=== PATIENT | male | born 1965 | race Caucasian/White ===

== ENCOUNTER 2023-04-06 10:07 | Day surgery (SDC) | payer MEDICARE ==
[2023-03-31 13:03] VITALS: BMI 30.5
[~2023-04-06 10:07] MED LIST: DEXAMETHASONE SOD PHOSPHATE 4 MG/ML 1 ML VIAL IV ONE; FAMOTIDINE 20 MG/2 ML VIAL IV PRN; HYDROmorphone 0.5 MG/0.5 ML SYRINGE IVP PRN; LACTATED RINGERS 1,000 ML IV SCH; ONDANSETRON 4 MG/2 ML VIAL IVP ONE; ONDANSETRON 4 MG/2 ML VIAL IVP PRN; OXYMETAZOLINE 0.05% NASL SPRAY 1 SPRAY BOTTLE EA NOSTRIL PRN
[2023-04-06 10:58] LABS: Glucose,Whole Blood 209 mg/dL (70-110)
[2023-04-06] MEDS ORDERED: INSULIN ASPART (NovoLOG) 100 UNIT/ML VIAL SQ ONE (10:59)
[2023-04-06] MEDS ORDERED: PROPOFOL 10 MG/ML 20 ML VIAL IV ONE (11:01)
[2023-04-06] MEDS ORDERED: NEOSTIGMINE 1 MG/ML 10 ML VIAL ONE (11:01)
[2023-04-06] MEDS ORDERED: fentaNYL (PF) 50 MCG/ML 2 ML AMP ONE (11:01)
[2023-04-06] MEDS ORDERED: GLYCOPYRROLATE 0.2 MG/ML 2 ML VIAL ONE (11:01)
[2023-04-06] MEDS ORDERED: ROCURONIUM 10 MG/ML (5 ML VIAL) IV ONE (11:01)
[2023-04-06] MEDS ORDERED: MIDAZOLAM 2 MG/2 ML VIAL ONE (11:01)
[2023-04-06] MEDS ORDERED: LIDOCAINE 1%-EPI 1:100,000 50 ML VIAL SUBMUCOSAL ONE ×2 (11:06)
[2023-04-06] MEDS ORDERED: BACITRACIN ZINC 500 UNIT/GM OINT 28.4 GM TUBE TOPICAL ONE (11:29)
--- NOTE | 2023-04-06 12:09 | P.OP ---
Date of Procedure: 04/06/23 Preoperative Diagnosis: Deviated nasal septum Inferior turbinate hypertrophy Chronic sinusitis Postoperative Diagnosis: Same Procedure(s) Performed: Septoplasty Outfracture and submucous resection of the inferior turbinates Bilateral endoscopic sinus surgery including bilateral maxillary antrostomy with removal of tissue from maxillary sinuses right anterior posterior ethmoidectomy with frontal sinus exploration and removal of tissue from the frontal sinus and right sphenoidotomy with removal of tissue from the sphenoid sinus Anesthesia: ANITA Surgeon: Idris Wood Estimated Blood Loss (ml): 20 Pathology: other (Nasal septal bone and cartilage sinus contents) Condition: stable Disposition: PACU Indications for Procedure: This is a 57-year-old white male with difficulties with chronic nasal airway obstruction bilaterally left greater than right as well as recurrent and chronic sinusitis Operative Findings: Nasal septum deviated to the right inferior turbinate hypertrophy bilaterally. Chronic sinusitis involving the bilateral maxillary right ethmoid right frontal and right sphenoid sinuses with small polyps within the frontal and sphenoid sinuses as well as bilateral maxillary sinuses and mucosal thickening in the right anterior and posterior ethmoid air cells. Purulence noted in the right maxillary sinus which was cultured Description of Procedure: The patient was brought into the operative suite and placed in a supine position. The patient underwent induction of general anesthesia with oral endotracheal intubation without difficulty. The patient was prepped and draped in the usual aseptic fashion with the orbits in the operating field for monitoring to the case and the computed tomography scan was on the computer screen for review throughout the case. 1% lidocaine with 1 :100,000 epinephrine was infused submucosally into both sides of the nasal septum as well as the lateral nasal wall and anterior tips of the middle turbinates. While this was taking vasoconstrictive effect the inferior turbinates were infractured with Dodge elevator and partial submucous resection of the inferior turbinates was performed with a portion of the submucosal soft tissue and the inferior turbinate bone removed with Coblation device. The inferior turbinates were then outfractured with the Dodge elevator. A left hemitransfixion incision was then made with the mucoperichondrial and mucoperiosteal flap on the left elevated. The bony cartilaginous junction was disarticulated and the mucoperiosteal flap on the right was elevated. Bony nasal septal deformities were removed with Jude forceps and an inferior cartilaginous strip was removed leaving a full 1.5 cm caudal strut. Checking intranasally this corrected the nasoseptal deformities and the hemitransfixion incision was closed with a running 4-0 chromic suture. Full 0 endoscopic examination is performed bilaterally. Beginning on the right, the middle turbinate was medialized. The maxillary ostium was located with a ballpoint probe and an infundibulotomy was performed followed by uncinectomy. The maxillary antrostomy was enlarged at the expense of the anterior and posterior fontanelle taking care anteriorly not to injure the lacr imal bone. The maxillary sinus was evaluated with 30 and 70 endoscope .[Abnormal appearing tissue was removed from the maxillary sinus]. There was purulence in the right maxillary sinus which was cultured Anterior and posterior ethmoidectomy were then performed from anterior to posterior to the level of the skull base. The roof of the anterior ethmoid air cells were then cleaned from posterior to anterior using up-biting Blakesley forceps. Frontal sinusotomy was then performed on the right frontal sinus was then performed using a giraffe forceps and curved suction . The frontal sinus was then explored with 30 endoscope.[Abnormal tissue was removed from the frontal sinus]. The right sphenoid sinus was then opened with straight Blakesley forceps and #8 suction explored and abnormal tissue removed under 0 endoscopic evaluation . The sphenoid sinus was then explored with 0 endoscope.[Abnormal tissue was removed from the sphenoid sinus]. Attention was then turned to the left where the procedures were followed as they had been on the left and in particular medialization middle turbinate infundibulotomy uncinectomy maxillary antrostomy with exploration and removal of tissue from the left maxillary sinus. [Nasopore nasal dressing was placed in the middle meatus bilaterally under direct visualization]. Bilateral Cisneros airway splints coated with bacitracin ointment were placed and sutured transseptally with a 4-0 nylon suture. The patient was suctioned in oral gastric fashion and was allowed to emerge from general anesthesia having tolerated procedure well and was extubated in the operating suite and transferred to the postoperative recovery area in satisfactory condition.
[2023-04-06 12:27] VITALS: TEMP 97.8
[2023-04-06 13:26] LABS: Glucose,Whole Blood 216 mg/dL (70-110)
[2023-04-06 13:42] VITALS: RESP 14
[2023-04-06 14:07] VITALS: BP 153/89; PULSE 81
== END 2023-04-06 14:00 | disposition home or self-care (01) ==
LOC: OR 10:07
PROVIDERS: ATTEND Otolaryngology
DX: J32.9 Chronic sinusitis, unspecified (principal); J34.2 Deviated nasal septum; J34.3 Hypertrophy of nasal turbinates; I10 Essential (primary) hypertension; E78.5 Hyperlipidemia, unspecified; G35 Multiple sclerosis; E11.9 Type 2 diabetes mellitus without complications; Z79.84 Long term (current) use of oral hypoglycemic drugs; Z79.899 Other long term (current) drug therapy; Z87.442 Personal history of urinary calculi
CPT/HCPCS: 30520; 30140; 31288; 31253; 31267; 31259; 88305; 88300; 87070; 87205; 87075; J2250; J2710; J0690; J2405; J3010; J2704